=== PATIENT | female | born 2005 | race Caucasian/White ===

== ENCOUNTER 2023-02-02 14:54 | Emergency (ER) | payer OTHER ==
[~2023-02-02] VITALS: Ht 157.5 cm; Wt 43.1 kg
[2023-02-02] MEDS ORDERED: VENTOLIN HFA18 GM INH (15:15)
[2023-02-02 16:41] VITALS: BP 99/61
--- NOTE | 2023-02-04 00:07 | EKG ---
[facility] [address] [facility] [place] [address] Signed Sinus bradycardia Otherwise normal ECG No previous ECGs available Confirmed by Brian Kraus MD () on 02/04/2023 12:06:57 AM Electronically Signed By: BRIAN KRAUS MD 02/04/23 0007 PATIENT NAME: MARICRUZAMANDEEP M L Electrocardiogram DATE OF : [birth year] PHYSICIAN: BRIAN KRAUS MD REPORT #: [id number] REPORT IS CONFIDENTIAL AND NOT TO BE RELEASED WITHOUT AUTHORIZATION
== END 2023-02-02 16:42 | disposition home or self-care (01) ==
LOC: ED 14:54
DX: R55 Syncope and collapse (principal)
CPT/HCPCS: 36415; 80053; 83735; 84703; 85025; 93005; 93010; 99284 25; J7121

== ENCOUNTER 2023-09-08 00:39 | Emergency (ER) | payer OTHER ==
[~2023-09-08] VITALS: Ht 157.5 cm; Wt 43.1 kg
[~2023-09-08 00:39] MED LIST: VENTOLIN HFA18 GM INH
[2023-09-08] MEDS ORDERED: ALBUTEROL/IPRATROPIUM 3 ML NEB INH ONE (00:45)
[2023-09-08] MEDS ORDERED: methylPREDNISolone SOD SUCC 125 MG/2 ML VIAL IV ONE (00:45)
[2023-09-08] MEDS ORDERED: ALBUTEROL/IPRATROPIUM 3 ML NEB ONE (00:46)
[2023-09-08 00:55] LABS: BASOPHILS 0.6 % (0-2); EOSINOPHILS 7.9 % (0-6); HEMATOCRIT 36.1 % (35.0-50.0); HEMOGLOBIN 12.2 g/dL (12.0-18.0); LYMPHOCYTES 24.9 % (24-44); MCH 29.5 (27-36); MCHC 33.7 g/dl (30-36); MCV 87.7 fl (81-99); MONOCYTES 5.5 % (0-12); NEUTROPHILS 61.1 % (39-80); PLATELET COUNT 365 K/uL (140-440); RBC 4.12 M/ul (4.3-5.7); RDW 13.3 (10.5-15.0)
[2023-09-08 01:11] LABS: ALBUMIN 2.9 g/dL (3.4-5.0); ALBUMIN/GLOBULIN RATIO 0.67 (1.1-2.4); ANION GAP 13.7 (7-21); BILIRUBIN, TOTAL 0.2 ng/dL (0.2-1.0); BUN/CREATININE RATIO 22.03 (6.0-28.6); CALCIUM 9.1 mg/dL (8.5-10.1); CREATININE, SERUM 0.59 mg/dL (0.55-1.02); POTASSIUM 3.7 mmol/L (3.5-5.1); PROTEIN, TOTAL 7.2 g/dL (6.4-8.2)
[2023-09-08] MEDS ORDERED: IPRAT-ALBUT 0.5-3 ML INH (01:37)
[2023-09-08] MEDS ORDERED: NEBULIZER UNIT XX (01:39)
[2023-09-08] MEDS ORDERED: VITAFOL-OB+DHA1 EACH PO (01:41)
[2023-09-08] MEDS ORDERED: ALBUTEROL SULFATE 8 GM HOME.PACK INH ONE (01:45)
[2023-09-08] MEDS ORDERED: INHALER, ASSIST DEVICES 1 EACH SPACER MISC ONE (01:45)
[2023-09-08 01:52] LABS: INFLUENZA B NAA NEGATIVE (NEGATIVE); RESPIRATORY SYNCYTIAL VIR NAA NEGATIVE (NEGATIVE)
[2023-09-08 02:10] VITALS: BP 107/60
== END 2023-09-08 02:10 | disposition home or self-care (01) ==
LOC: ED 00:39
PROVIDERS: Internal Medicine
DX: O99.519 Diseases of the respiratory system complicating pregnancy, unspecified trimester (principal); J45.901 Unspecified asthma with (acute) exacerbation; Z3A.00 Weeks of gestation of pregnancy not specified
CPT/HCPCS: 36415; 71045; 80053; 84702; 85025; 87502; 94640; 94664; 96374; 99285-25; J2930; U0002

== ENCOUNTER 2024-01-13 22:55 | Emergency (ER) | payer OTHER ==
[~2024-01-13] VITALS: Ht 157.5 cm; Wt 58.0 kg
[~2024-01-13 22:55] MED LIST changes: +IPRAT-ALBUT 0.5-3 ML INH; +NEBULIZER UNIT XX; +ONDANSETRON ODT8 MG PO; +PREDNISONE20 MG PO; +VITAFOL-OB+DHA1 EACH PO
[2024-01-14 00:10] VITALS: BP 107/66
== END 2024-01-14 00:10 | disposition home or self-care (01) ==
LOC: ED 22:55
DX: O9A.213 Injury, poisoning and certain other consequences of external causes complicating pregnancy, third trimester (principal); S00.12XA Contusion of left eyelid and periocular area, initial encounter; Z3A.36 36 weeks gestation of pregnancy; Y04.0XXA Assault by unarmed brawl or fight, initial encounter; O99.513 Diseases of the respiratory system complicating pregnancy, third trimester; J45.909 Unspecified asthma, uncomplicated; Z79.899 Other long term (current) drug therapy
CPT/HCPCS: 99283

== ENCOUNTER 2024-01-20 06:00 | Inpatient (IN) | payer OTHER ==
[~2024-01-20] VITALS: Ht 157.5 cm; Wt 50.8 kg
[~2024-01-20 06:00] MED LIST changes: +CALCIUM CARBONATE 500 MG CHEW PO PRN; +LACTATED RINGER'S 1,000 ML IV SCH; +MAGNESIUM HYDROXIDE/AL HYDROX 30 ML CUP PO PRN; +miSOPROStoL 25 MCG TAB PV SCH
[2024-01-20] MEDS ORDERED: LACTATED RINGER'S 1,000 ML IV PRN (06:15)
[2024-01-20] MEDS ORDERED: OXYTOCIN/DEXTROSE 5% 20 UNITS/100 ML BAG IV SCH (06:15)
[2024-01-20 06:36] LABS: HEMATOCRIT 33.8 % (35.0-50.0); HEMOGLOBIN 11.2 g/dL (12.0-18.0); MCH 28.2 (27-36); MCHC 33.1 g/dl (30-36); RBC 3.98 M/ul (4.3-5.7); RDW 14.3 (10.5-15.0)
[2024-01-20 06:59] LABS: AMPHETAMINES, URINE NEGATIVE (NEGATIVE); BARBITURATES, URINE NEGATIVE (NEGATIVE); BENZODIAZEPINE, URINE NEGATIVE (NEGATIVE); BUPRENORPHINE, URINE NEGATIVE (NEGATIVE); CANNABINOID, URINE POSITIVE (NEGATIVE); COCAINE, URINE NEGATIVE (NEGATIVE); ECSTASY, URINE NEGATIVE (NEGATIVE); FENTANYL, URINE NEGATIVE (NEGATIVE); METHADONE, URINE NEGATIVE (NEGATIVE); OPIATES, URINE NEGATIVE (NEGATIVE); OXYCODONE, URINE NEGATIVE (NEGATIVE); PHENCYCLIDINE, URINE NEGATIVE (NEGATIVE)
[2024-01-20 07:13] VITALS: BP 115/68
[2024-01-20 07:14] LABS: ABO O; RH POSITIVE
[2024-01-20 07:15] LABS: ANTIBODY SCREEN NEGATIVE
--- NOTE | 2024-01-20 10:09 | PR ---
[facility] [address] [facility] [place], [place] [address] Signed Progress Notes IP Datetime Report Generated by FRANCISCO: 01/20/2024 10:08 PROGRESS NOTES: [id number] Impression: Reassuring Heart Rate Procedures: Artificial ROM; Sterile Vag Exam Plan: Continue Present Management VITAL SIGNS: [id number] Vital Signs: Reviewed; Within Normal Limits EXAM: [id number] Dilatation: 2.0 Effacement: 80 Station: -1 Contractions: q 1 to 2 min MEMBRANES: [id number] Comments: Frequent contractions though not really painful as yet. Will continue. FETUS A: [id number] FHR Baseline: 135 Variability: Moderate 6-25bpm Accelerations: 15X15 Decelerations: None FHR Category: Category I Presentation: Vertex FETUS B: [id number] Signing Physician: Jessica Gay MD Copies: ~ *Electronically Signed* 01/20/24 1008 JESSICA GAY MD PATIENT NAME: AMANDEEP OWENS PROGRESS NOTE DATE OF : 03 PHYSICIAN: JESSICA GAY MD RPT #: [id number] REPORT IS CONFIDENTIAL AND NOT TO BE RELEASED WITHOUT AUTHORIZATION
[2024-01-20] MEDS ORDERED: fentaNYL citrate 100 MCG/2 ML VIAL ONE ×2 (12:25→15:18)
[2024-01-20] MEDS ORDERED: ROPIVACAINE 0.2% 200 ML BAG ONE (12:25)
[2024-01-20] MEDS ORDERED: LACTATED RINGER'S 2,000 ML IV ONE (13:00)
[2024-01-20] MEDS ORDERED: ePHEDrine sulfate 5 MG/ML SYRINGE IV PRN (13:00)
[2024-01-20] MEDS ORDERED: ROPIVACAINE 0.2% 200 ML BAG EPIDURAL SCH (13:00)
[2024-01-20] MEDS ORDERED: LACTATED RINGER'S 500 ML IV PRN (13:00)
[2024-01-20] MEDS ORDERED: Ropivacaine HCl 0.5% 30 ML VIAL ONE (15:18)
--- NOTE | 2024-01-20 15:23 | PR ---
[facility] [address] [facility] [place], [place] [address] Signed Progress Notes IP Datetime Report Generated by FRANCISCO: 01/20/2024 15:23 PROGRESS NOTES: [id number] Impression: Normal Progression of Labor; Reassuring Heart Rate Procedures: Sterile Vag Exam Plan: Anesthesia Consult VITAL SIGNS: [id number] Vital Signs: Reviewed; Within Normal Limits EXAM: [id number] Dilatation: 9.0 Effacement: 100 Station: 0 Contractions: q 2 to 3 min MEMBRANES: [id number] Comments: Progressing well but uncomfortable. Will redose epidural. FETUS A: [id number] FHR Baseline: 135 Variability: Moderate 6-25bpm Accelerations: 15X15 Decelerations: None FHR Category: Category I Presentation: Vertex FETUS B: [id number] Signing Physician: Jessica Gay MD Copies: ~ *Electronically Signed* 01/20/24 1523 JESSICA GAY MD PATIENT NAME: AMANDEEP OWENS PROGRESS NOTE DATE OF : 03 PHYSICIAN: JESSICA GAY MD RPT #: [id number] REPORT IS CONFIDENTIAL AND NOT TO BE RELEASED WITHOUT AUTHORIZATION
[2024-01-20] MEDS ORDERED: HYDROCORTISONE ACETATE 25 MG SUPP PR PRN (16:15)
[2024-01-20] MEDS ORDERED: OXYTOCIN/0.9 % SODIUM CHLORIDE 500 ML IV SCH (16:15)
[2024-01-20] MEDS ORDERED: MAGNESIUM HYDROXIDE/AL HYDROX 30 ML CUP PO PRN (16:15)
[2024-01-20] MEDS ORDERED: ACETAMINOPHEN 325 MG TAB PO PRN (16:15)
[2024-01-20] MEDS ORDERED: MAGNESIUM HYDROXIDE 30 ML UDC PO PRN (16:15)
[2024-01-20] MEDS ORDERED: IBUPROFEN 600 MG TAB PO PRN (16:15)
[2024-01-20] MEDS ORDERED: LIDOCAINE 2% VISCOUS 6 ML SYR TOP ONE ×2 (16:15)
[2024-01-20] MEDS ORDERED: BENZOCAINE 60 ML AEROSOL TOP PRN (16:15)
[2024-01-20] MEDS ORDERED: HYDROCODONE/ACETA 5/325 TAB PO PRN (16:15)
[2024-01-20] MEDS ORDERED: CALCIUM CARBONATE 500 MG CHEW PO PRN (16:15)
[2024-01-20] MEDS ORDERED: WITCH HAZEL/GLYCERIN 1 EA PAD TOP PRN (16:15)
[2024-01-20] MEDS ORDERED: SENNOSIDES/DOCUSATE 1 EA TAB PO SCH (21:00)
[2024-01-21 05:17] LABS: HEMATOCRIT 33.4 % (35.0-50.0); HEMOGLOBIN 10.9 g/dL (12.0-18.0); MCH 28.2 (27-36); MCHC 32.8 g/dl (30-36); RBC 3.88 M/ul (4.3-5.7); RDW 14.3 (10.5-15.0)
--- NOTE | 2024-01-21 09:45 | PR ---
[facility] [address] [facility] [place], [place] [address] Signed PP Progress Notes Datetime Report Generated by CPMamadou: 01/21/2024 09:45 SUBJECTIVE: [id number] Pain: Within Normal Limits Vital Signs: [id number] Vital Signs: Reviewed; Within Normal Limits EXAM: Ongoing Cardiovascular: Not Done Respiratory: Not Done Abdomen/Uterus: Abnormal Lochia: Normal Vulva/Perineum: Not Done Breasts: Not Done CVA Tenderness: Not Done Extremities: Normal Incision: Not Applicable Progress: Normal Exam Comments: Fundus firm, NT @ U-2. H/H 10.9/33.4, WBC 14.5, plat 262k IMPRESSION/PLAN/PROCEDURES: [id number] Impression: Normal Progression Plan: Continue Present Management Progress Notes: Doing well. Will continue present care. Signing Physician: Jessica Gay MD Copies: ~ *Electronically Signed* 01/21/24 0945 JESSICA GAY MD PATIENT NAME: MARICRUZ MCGOWANAMANDEEP COLE PROGRESS NOTE DATE OF : 03 PHYSICIAN: JESSICA GAY MD RPT #: [id number] REPORT IS CONFIDENTIAL AND NOT TO BE RELEASED WITHOUT AUTHORIZATION
--- NOTE | 2024-01-22 09:25 | PR ---
[facility] [address] [facility] [place], [place] [address] Signed PP Progress Notes Datetime Report Generated by CPN: 01/22/2024 09:25 SUBJECTIVE: [id number] Pain: Within Normal Limits Nausea/Vomiting: Denies Vital Signs: [id number] Vital Signs: Reviewed; Within Normal Limits EXAM: Ongoing Cardiovascular: Not Done Respiratory: Not Done Abdomen/Uterus: Abnormal Lochia: Normal Vulva/Perineum: Not Done Breasts: Not Done CVA Tenderness: Not Done Extremities: Normal Incision: Not Applicable Progress: Normal Exam Comments: Fundus firm, NT @ U-2. IMPRESSION/PLAN/PROCEDURES: [id number] Impression: Normal Progression Plan: Discharge Procedures: None Progress Notes: Doing well. She is ready for D/C. Signing Physician: Jessica Gay MD Copies: ~ *Electronically Signed* 01/22/24924 JESSICA GAY MD PATIENT NAME: AMANDEEP OWENS PROGRESS NOTE DATE OF : 03 PHYSICIAN: JESSICA GAY MD RPT #: [id number] REPORT IS CONFIDENTIAL AND NOT TO BE RELEASED WITHOUT AUTHORIZATION
== END 2024-01-22 13:37 | disposition home or self-care (01) | DRG 806 ==
LOC: FBC 06:00
PROVIDERS: ADMIT Obstetrics & Gynecology; ATTEND Obstetrics & Gynecology
PROC: 10E0XZZ Delivery of Products of Conception, External Approach (ICD-10-PCS; principal; 2024-01-20)
PROC: 0KQM0ZZ Repair Perineum Muscle, Open Approach (ICD-10-PCS; 2024-01-20)
PROC: 10907ZC Drainage of Amniotic Fluid, Therapeutic from Products of Conception, Via Natural or Artificial Opening (ICD-10-PCS; 2024-01-20)
PROC: 3E0R3BZ Introduction of Anesthetic Agent into Spinal Canal, Percutaneous Approach (ICD-10-PCS; 2024-01-20)
PROC: 00HU33Z Insertion of Infusion Device into Spinal Canal, Percutaneous Approach (ICD-10-PCS; 2024-01-20)
DX: O36.5930 Maternal care for other known or suspected poor fetal growth, third trimester, not applicable or unspecified (principal); O99.324 Drug use complicating childbirth; Z37.0 Single live birth; O70.1 Second degree perineal laceration during delivery; O69.81X0 Labor and delivery complicated by cord around neck, without compression, not applicable or unspecified; Z87.891 Personal history of nicotine dependence; F12.90 Cannabis use, unspecified, uncomplicated; Z98.890 Other specified postprocedural states; Z3A.37 37 weeks gestation of pregnancy; O99.02 Anemia complicating childbirth
CPT/HCPCS: 01960; 36415; 80307; 85027; 86850; 86900; 86901; A9270; J2590; J2795; J3010; J7121